=== PATIENT | female | born 1985 | race Hispanic/Latino ===

== ENCOUNTER → 2023-07-06 | Emergency (ER) | payer SELFPAY ==
[~2023-07-06] MED LIST: IBUPROFEN 200 MG TAB PO ONE
--- NOTE | 2023-07-06 01:32 | ER ---
Nurse's Notes [facility] Name: Antonia Gallegos Age: 38 yrs Sex: Female : 1985 Arrival Date: 07/06/2023 Time: 00:26 Bed 7 Private MD: Diagnosis: Low back pain Presentation: 07/06 00:32 Chief complaint: EMS states: PD was called to [employer] for patient screaming and tm6 yelling, saying she was being chased by wolves in the forest. Coronavirus screen: Client denies travel out of the [place] in the last 14 days. Ebola Screen: Patient negative for fever greater than or equal to 101.5 degrees Fahrenheit, and additional compatible Ebola Virus Disease symptoms Patient denies exposure to infectious person. Patient denies travel to an Ebola-affected area in the 21 days before illness onset. No symptoms or risks identified at this time. Initial Sepsis Screen: Does the patient meet any 2 criteria? No. Patient's initial sepsis screen is negative. Does the patient have a suspected source of infection? No. Patient's initial sepsis screen is negative. Risk Assessment: Do you want to hurt yourself or someone else? Patient reports no desire to harm self or others. Onset of symptoms is unknown. 00:32 Method Of Arrival: EMS: [facility] tm6 00:32 Acuity: ALTAF 3 tm6 Triage Assessment: 00:35 General: Appears unkempt, Behavior is agitated, uncooperative. Pain: Complains of pain tm6 in back Pain currently is 8 out of 10 on a pain scale. Quality of pain is described as. EENT: No signs and/or symptoms were reported regarding the EENT system. Neuro: Level of Consciousness is awake, alert, obeys commands, Oriented to person, place, time. Cardiovascular: Capillary refill < 3 seconds Patient's skin is warm and dry. Respiratory: Airway is patent Respiratory effort is even, unlabored, Respiratory pattern is regular, symmetrical. GI: Abdomen is flat, non-distended. : No signs and/or symptoms were reported regarding the genitourinary system. Derm: No signs and/or symptoms reported regarding the dermatologic system. Musculoskeletal: No signs and/or symptoms reported regarding the musculoskeletal system. Historical: - Allergies: 00:35 PENICILLINS; tm6 - Home Meds: 00:35 None [Active]; tm6 - Immunization history:: Adult Immunizations unknown. - Social history:: Smoking status: Patient reports the use of cigarette tobacco products. Screenin:37 [facility] ED Fall Risk Assessment (Adult) History of falling in the last 3 months, tm6 including since admission No falls in past 3 months (0 pts). Abuse screen: Denies threats or abuse. Denies injuries from another. Nutritional screening: No deficits noted. Nutritional screening: No deficits noted. Assessment: 00:37 Reassessment: see triage assessment. tm6 00:38 Reassessment: purewick placed. tm6 00:38 Reassessment: patient stated "you are fucking whores for spreading my legs to see my 6 pussy. Fucking whores.". 00:40 Reassessment: Pt states, " I am no even worried about my back pain, I have no where to vc1 stay". 00:40 Reassessment: can hear patient tell the nurse and tech, " you are fucking whores for vc1 spreading my legs to see my pussy. Fucking whores." entered room and asked patient not to speak to them that way. Pt starts yelling fuck you, you are not serving the world, you white supremacists". 00:45 Reassessment: Attempted to discharge patient. Patient states " I am not leaving fuck vc1 you you stupid bitch." Pt refuses to sign discharge paperwork. Placed paperwork on tray by the patients bed. Pt picks up packet at throws it at me yelling, "fuck you bitch". 00:56 Reassessment: Police at bedside. vc1 01:31 Reassessment: patient willingly left with police. Police to take patient to sister's 6 house. Vital Signs: 00:32 BP 134 / 85; Pulse 102; Resp 17; Temp 98.8(TE); Pulse Ox 99% on R/A; Weight 104.33 kg; tm6 Height 5 ft. 3 in. ; Pain 8/10; 00:32 Body Mass Index 40.74 (104.33 kg, 160.02 cm) tm6 00:32 Pain Scale: Adult [facility] ED Course: 00:31 Patient arrived in ED. ms3 00:31 Davenport, Osiel, DO is Attending Physician. ms3 00:32 Cristhian Rich DO is Referral Physician. ms3 00:35 Triage completed. tm6 00:35 Arm band placed on right wrist. tm6 00:37 Patient has correct armband on for positive identification. Bed in low position. Call tm6 light in reach. Side rails up X2. Provided Education on: plan of care. Warm blanket given. 00:38 No provider procedures requiring assistance completed. tm6 01:32 Patient did not have IV access during this emergency room visit. tm6 Administered Medications: 00:37 Drug: Ibuprofen PO 600 mg PO once Route: PO; vc1 Medication: 00:37 VIS not applicable for this client. tm6 Outcome: 00:32 Discharge ordered by . ms3 01:31 Discharged to Law Enforcement tm6 01:31 Condition: stable 01:31 Discharge instructions given to police, 01:32 Patient left the ED. tm6 Signatures: Osiel Davenport DO DO ms3 Jane Severino RN RN vc1 Junito Estrella, KENDRICK RN tm6
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
[2023-07-06 03:30] VITALS: BP 134/85; TEMP 98.8; O2SAT 99
== END ==
LOC: ER 00:26
DX: M54.50 Low back pain, unspecified (principal)
CPT/HCPCS: 99284

== ENCOUNTER → 2023-07-19 | Emergency (ER) | payer SELFPAY ==
[~2023-07-19] MED LIST changes: +AZITHROMYCIN 250 MG TAB ONE; +CEFTRIAXONE 500 MG/VIAL ONE; -IBUPROFEN 200 MG TAB PO ONE; +ONDANSETRON 4 MG (ODT) TAB ONE; +metroNIDAZOLE 500 MG TABLET ONE
--- OUTSIDE RECORDS SUMMARY | 2023-07-19 02:11 | XMS REPORT | Continuity of Care Document ---
Author Name Unknown Address [address] [facility] [place] [address] [facility] thconnect Address [address] [facility] [address] [place] [address] Care Team Providers Care Nurse Practitioner Physicians Assistant Name Role Phone Unavailable Unavailable Unavailable Encounters Start Date/Time End Date/Time Encounter Type Admission Type Attending [facility] Facility Care Department Encounter ID Source 2023-07-11 10:20:01 2023-07-11 10:20:01 Outpatient SFA SFA [id number] Christopher Rouse 2023-07-02 08:29:55 2023-07-02 08:29:55 Outpatient SFA SFA [id number] Christopher Rouse 2023-07-01 11:16:21 2023-07-01 11:16:21 Outpatient SFA SFA [id number] Christopher Rouse 2023-06-17 10:48:01 2023-06-17 10:48:01 Outpatient SFA SFA [id number] Christopher Rouse 2023-05-27 14:54:00 2023-05-27 14:54:00 Outpatient SFA SFA [id number] Christopher Rouse 2023-03-31 17:18:36 2023-03-31 17:18:36 Outpatient SFA SFA [id number] Christopher Rouse 2023-03-18 10:36:12 2023-03-18 10:36:12 Outpatient SFA SFA [id number] Christopher Rouse 2023-03-11 11:26:39 2023-03-11 11:26:39 Outpatient SFA SFA [id number] Christopher Rouse 2023-03-04 09:33:03 2023-03-04 09:33:03 Outpatient SFA SFA [id number] Christopher Rouse 2023-02-11 14:30:04 2023-02-11 14:30:04 Outpatient SFA SFA [id number] Christopher Rouse 2023-01-30 11:38:18 2023-01-30 11:38:18 Outpatient SFA SFA [id number] Christopher Rouse 2023-01-21 15:02:59 2023-01-21 15:02:59 Outpatient SFA SFA [id number] Christopher Rouse 2023-01-03 10:31:10 2023-01-03 10:31:10 Outpatient SFA SFA [id number] Christopher Rouse 2022-12-24 10:30:28 2022-12-24 10:30:28 Outpatient SFA SFA [id number] Christopher Rouse 2022-12-06 13:06:19 2022-12-06 13:06:19 Outpatient SFA SFA [id number] Christopher Rouse 2022-11-21 11:55:00 2022-11-21 11:55:00 Outpatient SFA SFA [id number] Christopher Rouse 2022-11-14 14:33:27 2022-11-14 14:33:27 Outpatient SFA SFA [id number] Christopher Rouse 2022-10-15 10:32:27 2022-10-15 10:32:27 Outpatient SFA SFA [id number] Christopher Rouse 2022-10-14 15:25:31 2022-10-14 15:25:31 Outpatient SFA SFA [id number] Christopher Rouse 2022-09-30 16:09:37 2022-09-30 16:09:37 Outpatient SFA SFA [id number] Christopher Rouse 2022-09-27 15:20:55 2022-09-27 15:20:55 Outpatient SFA SFA [id number] Christopher Ruose 2022-09-24 08:33:29 2022-09-24 08:33:29 Outpatient SFA SFA [id number] Christopher Rouse 2022-09-13 15:34:36 2022-09-13 15:34:36 Outpatient SFA SFA [id number] Christopher Rouse Results Test Description Test Time Test Comments Results Result Co mments Source ALBUMIN/CREATININE RATIO, URINE, [id number] 06:36:46* Test Item Value Reference Range Interpretation Comme nts CREATININE, URINE, CONC. (test code = 2072) 76.4 MG/DL NOT ESTAB ALBUMIN, URINE, RANDOM (test code = 10041) <0.2 MG/DL NOT ESTAB CALC ALBUMIN/CREAT, RND (test code = 35754) <3 MG/G <30 Note: Albumin/Cr eatinine ratio reference interval reflects ADA and NKF guidelines. UNLESS OTHERWISE INDICATED, ALL TESTING PERFORMED AT [facility] [address] [place] [id number] INSPECTOR: PO REID M.D. [place] NUMBER [id number] [facility]. [id number] HEMOGLOBIN [id number] 02:34:21* Test Item Value Reference Range Interpretation Comme nts HEMOGLOBIN A1c (test code = 90498) 6.8 % 4.2-5.6 H [employer] GUIDELINES FOR HGB A1C: PREDIABETES/INCREASED RISK . . . . . . . 5.7-6.4% DIAGNOSIS OF DIABETES . . . . . . . . . >=6.5% WITH CONFIRMATION OR APPROPRIATE SYMPTOMS NOTE: ASSAY MAY BE AFFECTED BY HEMOGLOBINOPATHIES (SICKLE CELL ANEMIA, S-C DISEASE, OTHERS) OR ARTIFICIALLY LOWERED BY DECREASED RED CELL SURVIVAL (HEMOLYTIC ANEMIAS, BLOOD LOSS, ETC.). CONSIDER ALTERNATE TESTING OR LABORATORY CONSULTATION. THYROID II PROFILE (TU,T4,FTI,TSH)2022-09-20 08:10:42* Test Item Value Reference Range Interpretation Comme nts T-UPTAKE (test code = 2817) 33.1 % 24.3-39.0 THYROX. BIND. CAPAC. (test code = 89249) 1.0 0.8-1.3 T4 (THYROXINE) (test code = 2819) 6.9 UG/DL 4.5-10.5 CORRECTED T4 (FTI) (test code = 2820) 6.9 UG/DL 4.2-11.6 TSH, THIRD GENERATION (test code = 2821) 2.120 UIU/ML 0.400-4.100 [facility] has impo rtant pathology staff changes effective 08/14/2022. New pathology staff will provide uninterrupted, excellent patient care and clinical consultation. See URL: [email or web address]. UNLESS OTHERWISE INDICATED, ALL TESTING PERFORMED AT [facility] [address] [place] [address] INSPECTOR: PO REID M.D. [place] NUMBER [id number] [facility] [place]. [id number] COMPREHENSIVE METABOLIC [id number] 05:38:19* Test Item Value Reference Range Interpretation Comme nts GLUCOSE (test code = 2217) 306 MG/DL 70-99 H BUN (test code = 2208) 10 MG/DL 6-20 CREATININE (test code = 2214) 0.51 MG/DL 0.60-1.30 L eGFR (2020 CKD-EPI) (test code = 85974) 123 ML/MIN/1.73 >60 CALC BUN/CREAT (test code = 2235) 20 RATIO 6-28 SODIUM (test code = 2231) 133 MEQ/L 133-146 POTASSIUM (test code = 2228) 4.7 MEQ/L 3.5-5.4 CHLORIDE (test code = 2215) 96 MEQ/L 95-107 CARBON DIOXIDE (test code = 2206) 26 MEQ/L 19-31 CALCIUM (test code = 2209) 10.0 MG/DL 8.5-10.5 PROTEIN, TOTAL (test code = 2229) 7.1 G/DL 6.1-8.3 ALBUMIN (test code = 2201) 4.2 G/DL 3.5-5.2 CALC GLOBULIN (test code = 2240) 2.9 G/DL 1.9-3.7 CALC A/G RATIO (test code = 2234) 1.4 RATIO 1.0-2.6 BILIRUBIN, TOTAL (test code = 2207) 0.3 MG/DL See_Comment [Automated me ssage] The system which generated this result transmitted reference range: <=1.2. The reference range was not used to interpret this result as normal/abnormal. ALKALINE PHOSPHATASE (test code = 2204) 172 U/L 40-112 H AST (test code = 2218) 13 U/L 9-40 ALT (test code = 2219) 16 U/L 5-40 HEPATIC FUNCTION [id number] 05:38:19* Test Item Value Reference Range Interpretation Comme nts PROTEIN, TOTAL (test code = 2228) 7.1 G/DL 6.1-8.3 ALBUMIN (test code = 2200) 4.2 G/DL 3.5-5.2 BILIRUBIN, TOTAL (test code = 2206) 0.3 MG/DL See_Comment [Automated Posse] The system which generated this result transmitted reference range: <=1.2. The reference range was not used to interpret this result as normal/abnormal. BILIRUBIN, DIRECT (test code = 2021) 0.1 MG/DL 0.0-0.3 ALKALINE PHOSPHATASE (test code = 2203) 172 U/L 40-112 H AST (test code = 2217) 13 U/L 9-40 ALT (test code = 2218) 16 U/L 5-40 HEMOGLOBIN [id number] 03:20:43* Test Item Value Reference Range Interpretation Comme nts HEMOGLOBIN A1c (test code = 99659) 13.5 % 4.2-5.6 H [employer] GUIDELINES FOR HGB A1C: PREDIABETES/INCREASED RISK . . . . . . . 5.7-6.4% DIAGNOSIS OF DIABETES . . . . . . . . . >=6.5% WITH CONFIRMATION OR APPROPRIATE SYMPTOMS NOTE: ASSAY MAY BE AFFECTED BY HEMOGLOBINOPATHIES (SICKLE CELL ANEMIA, S-C DISEASE, OTHERS) OR ARTIFICIALLY LOWERED BY DECREASED RED CELL SURVIVAL (HEMOLYTIC ANEMIAS, BLOOD LOSS, ETC.). CONSIDER ALTERNATE TESTING OR LABORATORY CONSULTATION. CBC W/AUTO DIFF WITH [id number] 02:25:42* Test Item Value Reference Range Interpretation Comme nts WBC (test code = 1001) 5.9 K/UL 3.5-11.0 RBC (test code = 1002) 4.74 M/UL 3.80-5.40 HEMOGLOBIN (test code = 1003) 13.7 G/DL 11.5-15.5 HEMATOCRIT (test code = 1004) 41.3 % 34.0-45.0 MCV (test code = 1005) 87.1 fL 80.0-99.0 MCH (test code = 1006) 28.9 PG 25.0-33.0 MCHC (test code = 1007) 33.2 G/DL 31.0-36.0 RDW (test code = 1038) 12.0 % 11.5-15.0 NEUTROPHILS (test code = 1008) 54.2 % LYMPHOCYTES (test code = 1010) 35.8 % MONOCYTES (test code = 1011) 7.6 % EOSINOPHILS (test code = 1012) 1.9 % BASOPHILS (test code = 1013) 0.3 % IMMATURE GRANULOCYTES (test code = 1036) 0.2 % NUCLEATED RBCS (test code = 1065) 0.0 /100 WBC'S See_Comment [Automated messa ge] The system which generated this result transmitted reference range: 0.0. The reference range was not used to interpret this result as normal/abnormal. PLATELET COUNT (test code = 1015) 269 K/UL 130-400 ABSOLUTE NEUTROPHILS (test code = 1066) 3.20 K/UL 1.50-7.50 ABSOLUTE LYMPHOCYTES (test code = 1067) 2.11 K/UL 1.00-4.00 ABSOLUTE MONOCYTES (test code = 1068) 0.45 K/UL 0.20-1.00 ABSOLUTE EOSINOPHILS (test code = 1040) 0.11 K/UL 0.00-0.50 ABSOLUTE BASOPHILS (test code = 1069) 0.02 K/UL 0.00-0.20 ABS IMMATURE GRANULOCYTES (test code = 1020) 0.01 K/UL 0.00-0.10 ABS NUCLEATED RBCS (test code = 28842) 0.00 K/UL 0.00-0.11
[2023-07-19 02:55] LABS: Specific Gravity 1.015 (1.005-1.030)
[2023-07-19 02:57] LABS: Specific Gravity 1.015 (1.005-1.030); Urine Bacteria None Seen /HPF (<20); Urine Bilirubin NEGATIVE (Negative); Urine Blood Negative (Negative); Urine Clarity Extremely Turbid (Clear); Urine Color Light-Yellow (Yellow); Urine Glucose NEGATIVE (Negative); Urine Mucus Slight /HPF (None Seen); Urine Protein NEGATIVE (Negative); Urine RBC <5 /HPF (None Seen); Urine Urobilinogen Normal (Normal); Urine pH 6.5 (5.0-7.0)
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
[2023-07-19 07:53] VITALS: BP 109/49; TEMP 97.4; O2SAT 100
== END ==
LOC: ER 02:07
DX: T76.21XA Adult sexual abuse, suspected, initial encounter (principal)
CPT/HCPCS: 81001; 81025; Q0162